=== PATIENT | female | born 1985 | race African-American/Black ===

== ENCOUNTER → 2016-06-15 | Outpatient (CLI) | payer BC, OTHER ==
[~2016-06-15] MED LIST: ABAGIO PO; HYDROCODON-ACE1 EA10 PO; NEURONTIN300 MG PO
[2016-06-15 07:25] VITALS: BP 103/64
[2016-06-15 09:20] VITALS: BP 103/64
== END ==
LOC: OPONC 02:28
DX: G35 Multiple sclerosis (principal)
CPT/HCPCS: 95000; 95001

== ENCOUNTER → 2016-06-16 | Outpatient (CLI) | payer BC, OTHER ==
[2016-06-16 07:45] VITALS: BP 106/63
== END ==
LOC: OPONC
DX: G35 Multiple sclerosis (principal)
CPT/HCPCS: 95000

== ENCOUNTER → 2016-06-19 | Outpatient (CLI) | payer BC, OTHER ==
[2016-06-19 12:44] VITALS: BP 108/95
[2016-06-19 12:47] VITALS: BP 108/95
[2016-06-19 14:57] VITALS: BP 108/95
== END ==
LOC: OPONC 06-17 09:17
DX: G35 Multiple sclerosis (principal)
CPT/HCPCS: 95000

== ENCOUNTER → 2017-03-01 | Outpatient (CLI) | payer BC, OTHER ==
[~2017-03-01] MED LIST changes: +PROZAC20 MG PO; +TOPAMAX50 MG PO; +WELLBUTRIN XL300 MG PO
[2017-03-01 08:40] VITALS: BP 117/73
== END ==
LOC: OPONC 00:34
DX: G35 Multiple sclerosis (principal)
CPT/HCPCS: 95000; 95001

== ENCOUNTER → 2017-03-02 | Outpatient (CLI) | payer BC, OTHER ==
[2017-03-02 10:26] VITALS: BP 124/75
== END ==
LOC: OPONC 00:45
DX: G35 Multiple sclerosis (principal)
CPT/HCPCS: 95000; 95001

== ENCOUNTER → 2017-03-05 | Outpatient (CLI) | payer BC, OTHER ==
[2017-03-05 08:25] VITALS: BP 119/72
== END ==
LOC: OPONC 00:55
DX: G35 Multiple sclerosis (principal)
CPT/HCPCS: 95000; 95001

== ENCOUNTER → 2017-03-06 | Outpatient (CLI) | payer BC, OTHER ==
[2017-03-06 09:20] VITALS: BP 117/72
== END ==
LOC: OPONC 00:46
DX: G35 Multiple sclerosis (principal)
CPT/HCPCS: 95000; 95001

== ENCOUNTER → 2017-03-07 | Outpatient (CLI) | payer BC, OTHER ==
[2017-03-07 09:43] VITALS: BP 109/58
== END ==
LOC: OPONC 03-06 06:49
DX: G35 Multiple sclerosis (principal)
CPT/HCPCS: 95000; 95001

== ENCOUNTER 2017-03-24 09:25 | Emergency (ER) | payer BC, OTHER ==
[~2017-03-24] VITALS: Ht 177.8 cm; Wt 80.7 kg
[2017-03-24] MEDS ORDERED: OCREVUS300 MG/10 (09:37)
[2017-03-24] MEDS ORDERED: EPIPEN0.3 MG/0.1 SUBQ (10:47)
== END 2017-03-24 11:24 | disposition home or self-care (01) ==
LOC: ER 09:25
DX: R07.0 Pain in throat (principal); R06.02 Shortness of breath; R05 Cough; T50.905A Adverse effect of unspecified drugs, medicaments and biological substances, initial encounter; G35 Multiple sclerosis; I47.1 Supraventricular tachycardia; Y92.89 Other specified places as the place of occurrence of the external cause

== ENCOUNTER → 2017-03-28 | Outpatient (CLI) | payer BC, OTHER ==
[~2017-03-28] MED LIST changes: +EPIPEN0.3 MG/0.1 SUBQ; +OCREVUS300 MG/10
[2017-03-28 12:35] VITALS: BP 113/73
== END ==
LOC: OPONC 04:27
DX: G35 Multiple sclerosis (principal)
CPT/HCPCS: 95000; 95001

== ENCOUNTER → 2017-03-29 | Outpatient (CLI) | payer BC, OTHER ==
[2017-03-29 10:21] VITALS: BP 128/80
== END ==
LOC: OPONC 00:17
DX: G35 Multiple sclerosis (principal)
CPT/HCPCS: 95000; 95001

== ENCOUNTER → 2017-10-24 | Outpatient (CLI) | payer BC ==
[~2017-10-24] MED LIST changes: +ATIVAN0.5 MG PO; +CYMBALTA30 MG PO; +MEDROLDOSEPACK PO; +TOPAMAX 25 MG T25 M1 PO
[2017-10-24 11:45] VITALS: BP 103/67
== END ==
LOC: OPONC 08:40
DX: G35 Multiple sclerosis (principal)
CPT/HCPCS: 95000

== ENCOUNTER → 2017-10-25 | Outpatient (CLI) | payer BC ==
[2017-10-25 08:14] VITALS: BP 118/76
== END ==
LOC: OPONC 07:55
DX: G35 Multiple sclerosis (principal)
CPT/HCPCS: 95000; 95001

== ENCOUNTER → 2017-10-26 | Outpatient (CLI) | payer BC ==
[2017-10-26 09:49] VITALS: BP 107/74
== END ==
LOC: OPONC 07:45
DX: G35 Multiple sclerosis (principal)
CPT/HCPCS: 95000; 95001

== ENCOUNTER → 2017-10-27 | Outpatient (CLI) | payer BC | LOC: OPONC 08:47 | DX: G35 Multiple sclerosis (principal) | CPT/HCPCS: 95000; 95001 ==

== ENCOUNTER → 2017-10-28 | Outpatient (CLI) | payer BC | LOC: OPONC 08:48 | DX: G35 Multiple sclerosis (principal) | CPT/HCPCS: 95000; 95001 ==

== ENCOUNTER 2019-02-19 18:46 | Emergency (ER) | payer BC ==
[~2019-02-19] VITALS: Ht 177.8 cm; Wt 81.7 kg
[2019-02-19] MEDS ORDERED: EFFEXOR XR75 MG PO (19:24)
[2019-02-19 22:21] VITALS: BP 108/68
== END 2019-02-19 22:23 | disposition home or self-care (01) ==
LOC: ER 18:46
DX: J39.2 Other diseases of pharynx (principal)